=== PATIENT | female | born 1940 | race Caucasian/White ===

== ENCOUNTER 2018-05-11 06:02 | Observation (INO) | payer BC ==
[2018-05-08 17:10] VITALS: BMI 32.2
[2018-05-11] VITALS (28 sets, daily range): BP systolic 92–127; BP diastolic 53–82; PULSE 72–116; RESP 15–26; Ht 154.9 cm; Wt 77.1 kg
[~2018-05-11] VITALS: Ht 154.9 cm; Wt 77.1 kg
[~2018-05-11 06:02] MED LIST: ATOR20TA38 PO; FOLI-49 PO; MELO15TA30 PO; OLME20TA20 PO; POTA10TA15 PO
[2018-05-11] MEDS ORDERED: POLYMYXIN/BACITRACIN 1L IRRIG ONE (06:42)
[2018-05-11] MEDS ORDERED: BUPIVACAINE 0.5% (SDV) 30 ML INJ ONE (06:42)
[2018-05-11] MEDS ORDERED: ROPIVACAINE 0.5 % 30 ML VIAL ONE ×2 (06:48→07:22)
[2018-05-11] MEDS ORDERED: EPHEDrine SULFATE 50 MG/5 ML SYG ONE (07:00)
[2018-05-11] MEDS ORDERED: CLINDAMYCIN 900 MG/50 ML D5W IVPB IVPB ONE (07:00)
[2018-05-11] MEDS ORDERED: [UNRECOGNIZED DRUG - CODE] PO (07:10)
[2018-05-11] MEDS ORDERED: CHOL100062 PO (07:10)
--- NOTE | 2018-05-11 07:15 | PREAC ---
Date/Time of Note Date/Time of Note DATE: 05/11/18 TIME: 07:13 Anesthesia Eval and Record Evaluation Time Pre-Procedure Interview DATE: 05/11/18 TIME: 07:13 Age 78 Sex female NPO: 8 hrs Preoperative diagnosis Left Foot Pain s/p Hardware hallux Ridigius Planned procedure Left Foot joint arthrodesis with allograft Past Medical History Past Medical History: Includes Cardio: HTN, Dyslipidemia Musculoskeletal: Osteoarthritis Surgery & Anesthesia Issues No known issue Meds Anticoagulation: No Beta Danika within 24 hr: No Reason Beta Danika not given: Pt. not on B-Danika Reported Medications Indapamide* (Lozol*) 1.25 Mg Tab, 1.25 MG PO DAILY, TAB 05/11/18 Cholecalciferol* (Vitamin D3*) 1,000 Unit Tablet, 1000 UNIT PO DAILY, TAB 05/11/18 Potassium Chloride (Klor-Con M10) 10 Meq Tab.prt.sr, 10 MEQ PO 05/08/18 Atorvastatin Calcium* (Atorvastatin Calcium*) 20 Mg Tablet, 20 MG PO QHS, #30 TAB 05/08/18 Folic Acid* (Folic Acid*) 1 Mg Tablet, 1 MG PO DAILY, TAB 05/08/18 Olmesartan Medoxomil (Benicar) 20 Mg Tablet, 20 MG PO DAILY, #30 TAB 05/08/18 Meloxicam* (Mobic*) 15 Mg Tablet, 15 MG PO DAILY, #30 TAB 05/08/18 Meds reviewed: Yes Allergies Coded Allergies: Penicillins (Verified Allergy, Unknown, 05/11/18) Sulfa (Sulfonamide Antibiotics) (Verified Allergy, Unknown, 05/11/18) Allergies Reviewed: Yes Labs/Studies Labs Reviewed: Reviewed by anesthesiologist test: N/A Studies: ECG (n/a), CXR (n/a) Pre-procedure Exam Airway: Adequate mouth opening, Adequate thyromental dist Mallampati: Mallampati II Teeth: Normal Lung: Normal Heart: Normal ASA Physical Status ASA physical status: 2 Emergency: None Planned Anesthetic General/MAC: ETT Nerve block: Femoral (left), Sciatic (left) Planned Pain Management Parenteral pain med Pre-operative Attestations Prior to commencing anesthesia and surgery, the patient was re-evaluated, there was verification of: *The patient's identity *The results of appropriate recent lab work and preoperative vital signs *The above evaluation not changing prior to induction *Anesthetic plan, risk benefits, alternative and complications discussed with patient/family; questions answered; patient/family understands, accepts and wishes to proceed. MATTIE TIJERINA MD May 11, 2018 07:15
[2018-05-11] MEDS ORDERED: PROPOFOL 20 ML ONE (07:22)
[2018-05-11] MEDS ORDERED: ROCURONIUM 50 MG INJ ONE (07:22)
[2018-05-11] MEDS ORDERED: CEFAZOLIN 1 GM INJ ONE (07:22)
[2018-05-11] MEDS ORDERED: MIDAZOLAM 1 MG/ML 2 ML INJ ONE (07:22)
[2018-05-11] MEDS ORDERED: PHENYLephrine (100 MCG/ML) 5ML SYG ONE (08:01)
[2018-05-11] MEDS ORDERED: ONDANSETRON 4 MG INJ ONE (08:26)
[2018-05-11] MEDS ORDERED: DEXAMETHASONE 4 MG/ML 5 ML INJ ONE (08:26)
[2018-05-11] MEDS ORDERED: METOCLOPRAMIDE 10 MG INJ ONE (08:26)
[2018-05-11] MEDS ORDERED: KETOROLAC 30 MG INJ ONE (08:26)
[2018-05-11] MEDS ORDERED: HETASTARCH 6% NACL 500 ML ONE (09:21)
[2018-05-11] MEDS ORDERED: NEOMYC/POLYMYX/BACIT 30 GM OINT ONE (10:58)
[2018-05-11] MEDS ORDERED: GLYCOPYRROLATE 0.4 MG INJ ONE (11:08)
[2018-05-11] MEDS ORDERED: NEOSTIGMINE 3 MG/3 ML SYRINGE ONE (11:08)
--- NOTE | 2018-05-11 11:26 | NUR ---
PACU FROM OR ON O2 MASK AROUSABLE VS STABLE NO RESO DISTRESS LT FOOT DSSG DRY INTACT LT HAND WITH 20 LE SITE CLEAR
[2018-05-11] MEDS ORDERED: DIPHENHYDRAMINE 50 MG INJ IV PRN (11:30)
[2018-05-11] MEDS ORDERED: LABETALOL HCL 20MG INJ IV PRN (11:30)
[2018-05-11] MEDS ORDERED: HYDROmorphONE 1 MG/5 ML IV SYRINGE IV PRN ×3 (11:30)
[2018-05-11] MEDS ORDERED: EPHEDrine SULFATE 50 MG/5 ML SYG IV PRN (11:30)
[2018-05-11] MEDS ORDERED: ONDANSETRON 4 MG INJ IV PRN ×2 (11:30→12:00)
[2018-05-11] MEDS ORDERED: hydrALAzine 20 MG INJ IV PRN (11:30)
[2018-05-11] MEDS ORDERED: OXYCODONE/ACETAMINOPHEN (5/325) TAB PO PRN ×2 (11:30)
[2018-05-11] MEDS ORDERED: FENTAnyl 50 MCG/ML VIAL IV PRN ×3 (11:30)
[2018-05-11] MEDS ORDERED: MEPERIDINE 25 MG INJ IV PRN (11:30)
[2018-05-11] MEDS ORDERED: METOCLOPRAMIDE 10 MG INJ IV PRN (11:30)
--- NOTE | 2018-05-11 11:51 | PAC ---
Date/Time of Note Date/Time of Note DATE: 05/11/18 TIME: 11:50 Post-Anesthesia Notes Post-Anesthesia Note Last documented vital signs T: 98.8 Activity: WNL Respiratory function: WNL Cardiovascular function: WNL Mental status: Baseline Pain reasonably controlled: Yes Hydration appropriate: Yes Nausea/Vomiting absent: Yes MATTIE TIJERINA MD May 11, 2018 11:51
--- NOTE | 2018-05-11 11:52 | HPN ---
Date/Time of Note Date/Time of Note DATE: 05/11/18 TIME: 06:52 Interval H&P Admission Note Pt. seen H&P reviewed: No system changes VINI TAVERAS MD May 11, 2018 11:52
[2018-05-11] MEDS ORDERED: ACETAMINOPHEN 325 MG TAB PO PRN (12:00)
[2018-05-11] MEDS ORDERED: DIPHENHYDRAMINE 25 MG CAP PO PRN (12:00)
[2018-05-11] MEDS ORDERED: HYDROmorphONE 1 MG/ML SYG IV PRN (12:00)
--- NOTE | 2018-05-11 12:00 | OPR ---
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 Left foot 2nd metatarsal over load Left foot 2nd MTPJ varus deformity Left foot 2nd and 3rd Metatarsal angular deformity Postoperative Diagnosis Left foot painful hardware Left foot failed silastic implant to the 1st MTP Joint Left foot 2nd metatarsal over load Left foot 2nd MTPJ varus deformity Left foot 2nd and 3rd Metatarsal angular deformity Left foot cockup deformity of the first toe Operation/Procedure Performed Left foot hardware removal Left foot first metatarsal phalangeal joint arthrodesis with calcaneal autograft and allograft Left foot extensor hallucis longus lengthening and tenodesis Left foot second metatarsal phalangeal joint and third metatarsal phalangeal joint correction of angular deformity Left foot second metatarsal Ronda shortening osteotomy Left foot second metatarsal phalangeal joint lateral joint capsular repair Surgeon Vini Taveras MD Food Critic Karol Botello MD Anesthesia Type: general, other (Popliteal block) Anesthesiologist: MATTIE TIJERINA MD Estimated Blood Loss: 10 - 50 ml's Transfusion none Specimen Silastic implant and synovitis from the first metatarsophalangeal joint Grafts/Implants [employer] first metatarsal phalangeal joint arthrodesis plate and screws [employer] augment with AlloMatrix [employer] amnion [employer] 12 snap off screw [employer] 0.062 mm K wire to the second metatarsal phalangeal joint and 0.045 mm K wire to the third metatarsal joint with associated Jurgan balls Grayson first metatarsal head allograft Complications none Pt Condition Post Procedure: stable Disposition: PACU Indications Patient is a 78-year-old female who is status post a Silastic implant placed by an outside visit patient several years ago with ongoing pain and deformity over her first toe with a cockup deformity of her first toe and pain over her first metatarsal pharyngeal joint as well as second and third metatarsophalangeal joints. There is also across under deformity of her second and third toes. Patient is indicated for surgery due to these ongoing complaints. Risk Note: Patient was explained the risks and benefits of surgery and the patient's [place] language including not limited to infection, bleeding, injury to blood vessels, nerves, ligaments or tendons. Risks of anesthesia, deep vein thrombosis and need for reduce future surgery. Patient acknowledged these risk by signing the surgical consent form. Procedure Description The patient's operative limb was marked in the preoperative holding area, confirmed with both patient and consent. The patient was brought back to the operative theater and placed on the operative table after peripheral nerve block was given. The patient had ipsilateral hip bump placed and a tourniquet was placed nonsterilely to the operative extremity. General anesthesia was given and the patient was prepped and draped in the normal sterile fashion. Timeout was taken. All parties in the room agreed on the correct patient, correct extremity, correct operative procedure. Tourniquet was brought up to 250 mm Hg. Incision was made over the previous incision and extending it both distally to the IP joint as well as proximally of the first MTPJ. At this point, the extensor hallucis longus was lengthened with a Z lengthening and then dissection was taken down to the proximal and distal metatarsal silastic implant which was removed successfully without any complication. There was extensive synovitis which was also debrided and sent for pathology. Incision was then made over the MP joint with extensive s ynovitis noted and the metatarsal head joint surface also had significant erosions. At this point, I decided that as opposed to doing the typical cup and cone reaming system, we would debride the joint with a curette to create some spot welds and then with a pecking approach using a 2.0 K wire to achieve better blood flow since there was already significant shortening of the joint, specifically at the proximal phalanx. The head was then pecked and the cartilaginous surface and the proximal phalanx was also debridement and pecking approach was also debrided with a K wire. At this point, using an Acumed calcaneal bone harvester, autograft was removed from the lateral aspect of the calcaneus successfully without any complication. Then using a size 5 trial, a Grayson size 19x5 length restoring first MTP head allograft was chosen. The proximal phalanx and metatarsal shaft were then packed with both autograft and allograft. The Grayson metatarsal head allograft was then packed on the undersurface with AlloMatrix mixed with augmented. The allograft metatarsal head was then placed successfully into the joint to obtain further length. The joint was then appropriately viewed under fluoroscopy, showing that we achieved appropriate length and alignment and the joint was initially fixed with a K wire in an oblique fashion. A [employer] medium 0 degree dorsiflexion plate was then placed dorsally and then fixed initially with kwires. A flat plate was confirmed showing that there was no evidence of any extensive dorsiflexion and the toe was at the plate with dorsiflexion of the ankle. Plate was fixed distally first and locked. Then a compression screw that was partially that it was placed from proximal medial to distal lateral. The plate was then fixated and compressed distally and then locked distally as well. More augment and allograft was then placed at the fusion site to ensure adequate arthrodesis healing. A flat plate was confirmed showing that there was no evidence of any extensive dorsiflexion and the toe was at the plate with dorsiflexion of the ankle. The joint was shown to be well reduced and compressed under fluoroscopy in both the AP, oblique and lateral position and the remaining screws were then placed. The extensor hallucis longus was then lengthened and repaired with a 3-0 PDS suture and then the wound was irrigated thoroughly. Tourniquet was brought down hemostasis was achieved. Amniotic membrane was placed over the dorsal surface of the foot. The wound was then closed with a 3-0 Monocryl followed by a 4-0 nylon in a vertical mattress fashion. The lateral calcaneal wound was also irrigated thoroughly and closed with a 4-0 nylon in vertical mattress fashion. Attention was then turned to the second webspace where incision was made over th e second and third metatarsal heads. Care was taken to avoid any injury to the surrounding neurovascular structures. The second metatarsal head with identified and a shortening osteotomy was then performed and the metatarsal was slightly shortened by approximately 1 mm and then fixated with a snap off screw. The dorsal of the medical head was then chamfered and rongeured appropriately. The wound was irrigated thoroughly. The lateral joint ligamentous capsule was then secured with a 3-0 PDS and repaired appropriately. The wound was then closed with a 3-0 Monocryl and an amniotic membrane was placed over the soft tissue and then the skin was closed with a 5-0 nylon in a vertical mattress fashion. The wound was then dressed with Xeroform, 4x4s, ABDs, and placed in a short-leg splint and the patient brought to the PACU in a stable condition. All sponge and needle counts were correct. [employer]ICAL SERGEANT NOTE: The use of an salon assistant surgeon was necessary for the success of this case. Food Critic orthopedic surgeon was needed to hold the foot in proper position for adequate fixation and reduction of the first second and third metatarsal phalangeal joint. Without an orthopedic surgical oncologist, the case would have been substantially more complicated and longer And thus should be compensated accordingly. MODIFIER 22 NOTE: This case should be reimbursed with a modifier 22 due to the significant complexity of this case, given that it was a revision on the previous surgeries on this foot and that it was a length restoring revision, thus making the anatomy more complicated and the surgery more difficult and significantly longer and thus should be compensated accordingly. Copies To: CC: KAROL BOTELLO MD ; VINI TAVERAS MD May 11, 2018 12:00
--- NOTE | 2018-05-11 12:25 | NUR ---
PACU PT AWAKE ALERT ROOM AIR NO C/O PAIN NO RESP DISTRESS VS STABLELT FOOT WITH DSSG AND PLASTER LT HAND WITH [address] BLANCO VISITED THE PATIENT REPORT GIVEN TO NEELAM VALLADARES
--- NOTE | 2018-05-11 12:41 | PN ---
Date/Time of Note Date/Time of Note DATE: 05/11/18 TIME: 12:31 Assessment/Plan VTE Prophylaxis Risk score (from Nsg)>0 risk: 8 SCD applied (from Nsg): Yes Pharmacological prophylaxis: rivaroxaban Lines/Catheters IV Catheter Type (from Nrsg): Peripheral IV Subjective 24 Hr Interval Summary Free Text/Dictation thank you dr steve for asking me to see this 78 yr old woman seen in the recovery room. she is posty odp left foot surgery as noted. she had local anesthesia and sedation but is awaked and alerrt. foot in splint, elevated. usual md dis dr Dima Lopez, rich nd p from him is in chart and reviewed. current problems hypertension, hyperlipidemia, arthritis. historyog hip rep;lacement and dneck surgery she is allergic to penicillin and artificial sugar. nbon smokerd on exam alert, vs ok as notedd [place] in place lungs clear, hr regular, abd soft. left foot elevated and wrapped. plan:we will follow with you in hospital. she has had surgery on the Exam/Review of Systems Exam Vitals Vital Signs Date Temp Pulse Resp B/P (MAP) Pulse Ox O2 O2 Flow FiO2 Time Delivery Rate 05/11/18 98.8 11:37 05/11/18 116 102/73 98 High Flow 8.0 11:26 (83) Mask 05/11/18 18 07:15 Medications Medication Current Medications Hydromorphone HCl (Dilaudid) 0.2 mg PACU PRN IV MILD PAIN 1-3; Start 05/11/18 at 11:30; Stop 05/11/18 at 15:30 Hydromorphone HCl (Dilaudid) 0.4 mg PACU PRN IV MOD PAIN 4-6; Start 05/11/18 at 11:30; Stop 05/11/18 at 15:30 Hydromorphone HCl (Dilaudid) 0.6 mg PACU PRN IV SEVERE PAIN 7-10; Start 05/11/18 at 11:30; Stop 05/11/18 at 15:30 Fentanyl (Sublimaze) 25 mcg PACU ORDER PRN IV MILD PAIN 1-3; Start 05/11/18 at 11:30; Stop 05/11/18 at 15:30 Fentanyl (Sublimaze) 50 mcg PACU ORDER PRN IV MOD PAIN 4-6; Start 05/11/18 at 11:30; Stop 05/11/18 at 15:30 Fentanyl (Sublimaze) 75 mcg PACU ORDER PRN IV SEVERE PAIN 7-10; Start 05/11/18 at 11:30; Stop 05/11/18 at 15:30 Oxycodone/ Acetaminophen (Percocet (5/ 325)) 1 tab PACU ORDER PRN PO .PAIN 1-5; Start 05/11/18 at 11:30; Stop 05/11/18 at 15:30 Oxycodone/ Acetaminophen (Percocet (5/ 325)) 2 tab PACU ORDER PRN PO .PAIN 6-10; Start 05/11/18 at 11:30; Stop 05/11/18 at 15:30 Ondansetron HCl (Zofran Inj) 4 mg PACU ORDER PRN IV NAUSEA/VOMITING; Start 05/11/18 at 11:30; Stop 05/11/18 at 15:30 Metoclopramide HCl (Reglan) 10 mg PACU ORDER PRN IV NAUSEA/VOMITING; Start 05/11/18 at 11:30; Stop 05/11/18 at 15:30 Labetalol HCl (Labetalol) 5 mg PACU ORDER PRN IV HIGH BLOOD PRESSURE; Start 05/11/18 at 11:30; Stop 05/11/18 at 15:30 Hydralazine HCl (Apresoline) 5 mg PACU ORDER PRN IV HIGH BLOOD PRESSURE; Start 05/11/18 at 11:30; Stop 05/11/18 at 15:30 Ephedrine Sulfate 5 mg PACU ORDER PRN IV BLOOD PRESSURE SUPPORT; Start 05/11/18 at 11:30; Stop 05/11/18 at 15:30 Meperidine HCl (Demerol) 25 mg PACU ORDER PRN IV .RIGORS; Start 05/11/18 at 11:30; Stop 05/11/18 at 15:30 Diphenhydramine HCl (Benadryl) 25 mg PACU ORDER PRN IV .PRURITUS; Start 05/11/18 at 11:30; Stop 05/11/18 at 15:30 Vancomycin HCl 100 ml @ 100 mls/hr Q12H IVPB ; Start 05/11/18 at 12:00; Stop 05/12/18 at 00:59; Status UNV Ondansetron HCl (Zofran Inj) 4 mg Q4H PRN IV NAUSEA AND/OR VOMITING; Start 05/11/18 at 12:00; Status UNV Diphenhydramine HCl (Benadryl) 25 mg Q4H PRN PO ITCHING; Start 05/11/18 at 12:00; Status UNV Rivaroxaban (Xarelto) 10 mg WITH DINNER PO ; Start 05/12/18 at 17:55; Status UNV Oxycodone HCl (Roxicodone) 5 mg Q4H PRN PO MODERATE PAIN LEVEL 4-6; Start 05/11/18 at 12:00; Status UNV Acetaminophen (Tylenol Tab) 325 mg Q4H PRN PO MILD PAIN(1-3)OR ELEVATED TEMP; Start 05/11/18 at 12:00; Status UNV Hydromorphone HCl (Dilaudid) 1 mg Q3H PRN IV SEVERE PAIN LEVEL 7-10; Start 05/11/18 at 12:00; Status UNV Gabapentin (Neurontin) 300 mg TID PO ; Start 05/11/18 at 13:00; Status UNV YOBANI BLANCO MD May 11, 2018 12:41
[2018-05-11] MEDS: VANCOMYCIN 500 MG (PMX) 100 ML IVPB SCH (13:50)
[2018-05-11] MEDS: GABAPENTIN 300 MG CAP PO SCH ×2 (14:45→20:53)
--- NOTE | 2018-05-11 18:25 | NUR ---
EOSS: Dressing c/d/i. Plaster with taras wrap on it visible. Pins visible on toes. Dried blood visible on big toe. Toes visible, cap refill <3 secs. Pt reports no sensation to toes. Sensation present on R foot and sensation of L leg begins directly below L knee, where plaster cast ends. No fevers; no pain/nausea. Pt reports sore throat. Pt educated on proper use of incentive spirometer; able to reach 1375; will continue to encourage. Pt on O2 at 2L and satting >95%. Pt tachycardic, ranging between 92-110, fluids encouraged. Pt nonsymptomatic. Pt oriented to unit. Call light within reach and bed alarm on. SCDs on.
[2018-05-11] MEDS: ATORVASTATIN 20 MG TAB PO SCH (20:53)
[2018-05-12] MEDS: VANCOMYCIN 500 MG (PMX) 100 ML IVPB SCH (02:28)
[2018-05-12 03:15] VITALS: BP 98/58; PULSE 81; RESP 16
[2018-05-12] MEDS: POTASSIUM CHLORIDE (SR) 10 MEQ TAB PO SCH (07:18)
[2018-05-12 08:39] VITALS: BP 90/57; PULSE 73; RESP 18
[2018-05-12] MEDS: LOSARTAN 50 MG TAB PO SCH (09:00)
[2018-05-12] MEDS: CHOLECALCIFEROL 1,000 UNIT TAB PO SCH (09:08)
[2018-05-12] MEDS: FOLIC ACID 1 MG TAB PO SCH (09:08)
[2018-05-12] MEDS: GABAPENTIN 300 MG CAP PO SCH (09:08)
--- NOTE | 2018-05-12 10:15 | NUR ---
PT EVALUATION NOTE: Therapy day number 1 Evaluation Start Time 09:20 Evaluation End Time 10:15 Evaluation Total Time 55 min Subjective Denies pain Pain Scale NUMERIC Pain Intensity 0 (0-10) Patient Stated Goal for Pain Relief 0 (0-10) Pain Level Comment denies pain Pre Treatment Vital Signs Stable Yes - BP 98/60, HR 83, O2 sat 97% on O2 via NC @ 1 l/min Supine to Sit Stand by Assist Transfer Sit to Stand Ability Contact Guard Assist Bed Mobility Sit to Supine Stand by Assist Bed Transfer Ability Contact Guard Assist Chair Transfer Ability Contact Guard Assist Toileting Ability Contact Guard Assist Sitting Tolerance 10 min Additional Mobility Comments transfers with FWW NWB LLE Gait Assist Levels Contact Guard Assist Assistive Devices Front Wheel Walker Ambulation Distance 5 feet Additional Gait Comments NWB LLE Weight Bearing Assessment Label Left Lower Extremity Weight Bearing Status Non Weight Bearing Static Sitting Balance Good Dynamic Sitting Balance Good Standing Static Balance Fair Dynamic Standing Balance Fair Additional Balance Assessments Comments standing balance with FWW NWB LLE Safety Judgement Good Activity Tolerance Good Post Treatment Pain Intensity 0 0-10 Total Minutes 55 Total Units 4 PT Technical Record Comment Patient is a 78 year old female who underwent L foot hardware removal and joint arthrodesis with allograft on 05/11/18. PMH: HTN, dyslipidemia, OA, L THR PRECAUTIONS: NWB LLE PLOF: Patient lives with her handicapped spouse in a two story house with a ramp to enter the house. The patient and her spouse, who is confined to a wheelchair, live on the first floor of the house. Prior to hospitalization patient was independent with all functional mobility without an assistive device. CLOF: Helene VALLADARES cleared patient for PT evaluation. Patient agreeable to participate with PT evaluation, denies pain. Received patient in semifowlers position in bed, LLE elevated in splint, BP 98/60, HR 83, O2 sat 97% on O2 via NC @ 1 l/min. Patient educated in safety awareness, fall prevention, NWB LLE status and purpose of PT evaluation. Patient able to come to sitting position at the EOB with SBA. Sitting BP 98/57, HR 90, O2 sat 96% on O2 via NC @ 1 l/min. Sit to stand with FWW and CGA NWB LLE. Patient able to ambulate 5 ft from the bed to the bedside commode with the FWW and CGA NWB LLE and transferred to the bedside commode. Sit to stand from the bedside commode with the FWW and CGA NWB LLE. Patient ambulated an additional 5 feet from the bedside commode to the bed with FWW and CGA NWB LLE. Patient returned to bed with SBA, repositioned for comfort, all needs met, call light within reach. Helene VALLADARES notified of patient's status at the end of the session. Patient cleared to transfer to bedside commode with FWW and nursing assistance. PT RECOMMENDATIONS: Patient presents with impaired functional mobility s/p L foot surgery with NWB status LLE. Patient will benefit from skilled inpatient PT intervention to increase safety and independence with bed mobility, transfers and ambulation with NWB LLE compliance. Anticipate discharge home once cleared by MD. Patient has arranged for a caregiver to assist her and her after she is discharged. Patient appears to have necessary equipment at home including FWW, scooter, wheelchair and bedside commode.
--- NOTE | 2018-05-12 13:09 | PN ---
Date/Time of Note Date/Time of Note DATE: 05/12/18 TIME: 13:09 Assessment/Plan Lines/Catheters IV Catheter Type (from Nrsg): Saline Lock Olivier in Place (from Nrsg): No Assessment/Plan Assessment/Plan POD#1 s/p Left foot hardware removal Left foot first metatarsal phalangeal joint arthrodesis with calcaneal autograft and allograft Left foot extensor hallucis longus lengthening and tenodesis Left foot second metatarsal phalangeal joint and third metatarsal phalangeal joint correction of angular deformity Left foot second metatarsal Ronda shortening osteotomy Left foot second metatarsal phalangeal joint lateral joint capsular repair -- NWB to the LLE - PT to GT -speech therapist consult pending - PO and IV pain meds - Xarelto for DVT prophx -- Jake Taveras MD Subjective 24 Hr Interval Summary Pain is high right now and patient is sleepy. Complaining of pain and difficulty swallowing Exam/Review of Systems Vital Signs Vitals Vital Signs Date Temp Pulse Resp B/P (MAP) Pulse Ox O2 O2 Flow FiO2 Time Delivery Rate 05/13/18 97.7 73 19 136/83 98 08:04 (100) 05/13/18 Nasal 2.0 07:40 Cannula Intake and Output 05/12/18 05/12/18 05/13/18 1414:59 22:59 06:59 IntakeIntake Total 840 ml 560 ml 450 ml OutputOutput Total 150 ml BalanceBalance 840 ml 410 ml 450 ml Exam Musculoskeletal: other (LLE/ Splint intact, pins intact to toes with cr brisk and warm and well perfused) Results Result Diagram: 05/12/18 0439 05/12/18 0439 VINI TAVERAS MD May 12, 2018 13:09
--- NOTE | 2018-05-12 13:20 | NUR ---
PT NOTE: Therapy day number 1 Subjective Denies pain Pain Scale NUMERIC Pain Intensity 0 (0-10) Patient Stated Goal for Pain Relief 0 (0-10) Pain Level Comment denies pain Pre Treatment Vital Signs Stable Yes Transfer Training Start Time 12:50 Supine to Sit Stand by Assist Transfer Sit to Stand Ability Contact Guard Assist Bed Mobility Sit to Supine Stand by Assist Sitting Tolerance 10 min Additional Mobility Comments transfers with FWW NWB LLE Transfer Training End Time 13:05 Total Transfer Training Time 15 min (8-127) Gait Training Start Time 13:05 Gait Assist Levels Contact Guard Assist Assistive Devices Front Wheel Walker Ambulation Distance 20 feet Additional Gait Comments NWB LLE, slow peña, able to manage FWW without assistance Gait Training End Time 13:20 Total Gait Training Treatment Time 15 min (8-127) Weight Bearing Assessment Label Left Lower Extremity Weight Bearing Status Non Weight Bearing Static Sitting Balance Good Dynamic Sitting Balance Good Standing Static Balance Fair Dynamic Standing Balance Fair Additional Balance Assessments Comments standing with FWW NWB LLE Safety Judgement Good Activity Tolerance Good Post Treatment Pain Intensity 0 0-10 Total Treament Time 30 min (8-127) Total Minutes 30 Total Units 2 PT Technical Record Comment S: Helene VALLADARES cleared patient for PT treatment. Patient agreeable to participate with PT treatment, denies pain. O: Received patient in semifowlers position in bed, LLE elevated in splint, patient on supplemental O2 via NC @ 2 l/min. RN reports that patient was desaturating with O2 @ 1 l/min. Patient able to come to sitting position at the EOB with SBA. Sit to stand with FWW and CGA NWB LLE. Gait training x 20 ft with the FWW and CGA NWB LLE. Patient ambulates with slow peña, able to manage FWW without physical assistance and able to maintain NWB LLE status. O2 sat >95% throughout session with patient on O2 via NC @ 2 l/min.Patient returned to bed with SBA, repositioned for comfort, all needs met, call light within reach, bed alarm activated. Helene VALLADARES notified of patient's status at the end of the session. Patient cleared to transfer to bedside commode with FWW and nursing assistance. A: Patient progressing with ambulation, increased ambulation distance. Able to maintain NWB LLE status with transfers and ambulation. P: Continue with POC.
[2018-05-12] MEDS ORDERED: GABAPENTIN 100 MG CAP PO PRN (13:30)
[2018-05-12] MEDS ORDERED: ASCORBIC ACID 500 MG TAB.CHEW PO SCH (13:30)
--- NOTE | 2018-05-12 14:48 | NUR ---
Bedside swallow evaluation completed: Pt is a 78 y/o female post op left foot surgery (05/11). She had local anesthesia and sedation but is awaked and alert. Her foot is in splint, and elevated. Med hx is significant for: hypertension, hyperlipidemia, and arthritis. Hx medical procedures include hip replacement and neck surgery. She is alert and oriented in bed. Family at bedside. She is on a regular diet, which is her baseline, however she was referred to ST as she is reporting food is getting caught when she tries to swallow. Oral [facility] exam: Unremarkable. Natural dentition in place. Face is symmetrical, with tongue at midline. Mild reduced hyolaryngeal excursion, per palpation. Pt is reporting significant discomfort starting at her hard palate and continuing bilaterally down her pharynx since her sx yesterday. She reports it feels very swollen. Trials: Thin liquids via cup and straw, pureed solids, soft ground solids Prolonged bolus hold and time required to initiate a/p transit, likely impacted by fear/ discomfort. Adequate bolus containment within oral cavity was observed. Initiation of pharyngeal swallow appears timely. Repeat swallows noted on all consistencies. Suspect red. pharyngeal constriction resulting in pharyngeal residue. Pt localizes residue to the level of the vallecula with soft ground solids only. Does not complain of residue with other consistencies. Demonstrated coughing x1 with ground chicken (1/3 bites) and x1 with consecutive straw sips thin liquids (1/1 trial). Tolerated all other trials without s/s aspiration, which included: 8 oz thin water by cup / single straw sips, 4 oz puree (between apple sauce, pudding and mashed potatoes), 4 bites ground broccoli. Provided verbal education to pt and family regarding dysphagia, diet modification options, safe swallow strategies, recovery timeline, POC, ST and goals. Verbalized comprehension and agreement to pureed diet with thin liquids. Recommendations: Pureed solids/ thin liquids Meds crushed in puree Single sips only Alt. solids / liquids Aspiration precautions/ oral care guidelines ST to f/u Addendum: 05/12/18 at [address] Amended: Links added.
[2018-05-12 15:03] VITALS: BP 104/60; PULSE 73; RESP 18
[2018-05-12] MEDS: ASCORBIC ACID 500 MG TAB PO SCH (16:39)
--- NOTE | 2018-05-12 17:18 | NUR ---
Endorsement: Dressing c/d/i. Plaster with taras wrap on it visible. Pins visible on toes. Dried blood visible on big toe. Toes visible, cap refill <3 secs. Pt reports sensation returning to toes. No fevers; no pain/nausea. Pt reports sore throat. Pt educated on proper use of incentive spirometer; able to reach 1375; will continue to encourage. Pt on O2 at 2L and satting >95%. BP improved from AM, BP 100's systolic, fluids encouraged. Pt nonsymptomatic. Pt reporting pain in throat and difficulty swallowing. Speech therapy consult requested. See ST note. Pureed food and thin liquids recommended. Pt oriented to unit. Call light within reach and bed alarm on. SCDs on. Addendum: 05/12/18 at 1735 by NEELAM LANGE RN Report given to Twyla for continuity of care.
[2018-05-12] MEDS ORDERED: CEPASTAT LOZENGE MT PRN (17:30)
--- NOTE | 2018-05-12 17:30 | NUR ---
ENDORSEMENT: ASSUMED PATIENT CARE, REPORT RECEIVED FROM NEELAM VALLADARES, BEDSIDE SHIFT REPORT GIVEN, WILL CONTINUE TO MONITOR.
[2018-05-12] MEDS: RIVAROXABAN 10 MG TABLET PO SCH (18:35)
[2018-05-12 19:56] VITALS: BP 100/60; PULSE 88; RESP 18
[2018-05-12] MEDS ORDERED: GABAPENTIN 300 MG CAP PO SCH (21:00)
[2018-05-12] MEDS: DOCUSATE SODIUM 100 MG CAP PO SCH (21:09)
[2018-05-12] MEDS: ATORVASTATIN 20 MG TAB PO SCH (21:09)
[2018-05-12] MEDS: oxyCODONE 5 MG TAB PO PRN (22:50)
--- NOTE | 2018-05-12 22:53 | NUR ---
Patient was c/o tightness of bandage on the L ankle area. Bandage was changed with less pressure.
--- NOTE | 2018-05-13 06:17 | NUR ---
Patient alert, oriented x4, slept good during the night, VS were stable, once was given pain medication. Urination good.
[2018-05-13 08:04] VITALS: BP 136/83; PULSE 73; RESP 19
--- NOTE | 2018-05-13 08:48 | PN ---
Date/Time of Note Date/Time of Note DATE: 05/13/18 TIME: 08:45 Assessment/Plan VTE Prophylaxis Risk score (from Ns)>0 risk: 3 SCD applied (from Ns): Yes Pharmacological prophylaxis: rivaroxaban Lines/Catheters IV Catheter Type (from Nrsg): Saline Lock Urinary Cath still in place: No Assessment/Plan Result Diagram: 05/12/189 05/12/189 Subjective 24 Hr Interval Summary Free Text/Dictation second post op day, left foot surgery. did get up with p.t. has knee scooter at home. cast loosened last pm vs are ok, voiding ok issue is post pharynx pain and trouble swallowing regular food, doing fine with puree and says some better this am. no trauma noted on oral inspection, no neck fullness. assume post intubation, if so should be better in next 24 hours. alert, lungs clear, labs ok continue with p.t. and mobilization ENT: dysphagia Musculoskeletal: bone/joint pain Exam/Review of Systems Exam Vitals Vital Signs Date Temp Pulse Resp B/P (MAP) Pulse Ox O2 O2 Flow FiO2 Time Delivery Rate 05/13/18 97.7 73 19 136/83 98 08:04 (100) 05/12/18 Nasal 2.0 21:42 Cannula Intake and Output 05/12/18 05/12/18 05/13/18 1515:00 23:00 07:00 IntakeIntake Total 840 ml 560 ml 450 ml OutputOutput Total 150 ml BalanceBalance 840 ml 410 ml 450 ml Medications Medication Current Medications Ondansetron HCl (Zofran Inj) 4 mg Q4H PRN IV NAUSEA AND/OR VOMITING; Start 05/11/18 at 12:00 Diphenhydramine HCl (Benadryl) 25 mg Q4H PRN PO ITCHING; Start 05/11/18 at 12:00 Rivaroxaban (Xarelto) 10 mg WITH DINNER PO Last administered on 05/12/18at 18:35; Admin Dose 10 MG; Start 05/12/18 at 17:55 Oxycodone HCl (Roxicodone) 5 mg Q4H PRN PO MODERATE PAIN LEVEL 4-6 Last administered on 05/12/18at 22:50; Admin Dose 5 MG; Start 05/11/18 at 12:00 Acetaminophen (Tylenol Tab) 325 mg Q4H PRN PO MILD PAIN(1-3)OR ELEVATED TEMP; Start 05/11/18 at 12:00 Hydromorphone HCl (Dilaudid) 1 mg Q3H PRN IV SEVERE PAIN LEVEL 7-10; Start 05/11/18 at 12:00 Atorvastatin Calcium (Lipitor) 20 mg QHS PO Last administered on 05/12/18at 21:09; Admin Dose 20 MG; Start 05/11/18 at 21:00 Cholecalciferol (Vitamin D) 1,000 unit DAILY PO Last administered on 05/12/18at 09:08; Admin Dose 1,000 UNIT; Start 05/12/18 at 09:00 Folic Acid (Folic Acid) 1 mg DAILY PO Last administered on 05/12/18at 09:08; Admin Dose 1 MG; Start 05/12/18 at 09:00 Potassium Chloride (Klor-Con 10) 10 meq BEFORE BREAKFAST PO Last administered on 05/12/18at 07:18; Admin Dose 10 MEQ; Start 05/12/18 at 07:00 Losartan Potassium (Cozaar) 100 mg DAILY PO ; Start 05/12/18 at 09:00 Gabapentin (Neurontin) 100 mg TID PRN PO PAIN LEVEL 7-10; Start 05/12/18 at 13:30 Cholecalciferol (Vitamin D) 5,000 unit DAILY PO ; Start 05/13/18 at 09:00 Ascorbic Acid (Vitamin C) 1,000 mg DAILY PO Last administered on 05/12/18at 16:39; Admin Dose 1,000 MG; Start 05/12/18 at 16:15 Phenol (Cepastat Lozenge) 1 lozenge Q1H PRN MT sore throat; Start 05/12/18 at 17:30 Docusate Sodium (Colace) 100 mg BID PO Last administered on 05/12/18at 21:09; Admin Dose 100 MG; Start 05/12/18 at 21:00 YOBANI BLANCO MD May 13, 2018 08:48
[2018-05-13] MEDS: DOCUSATE SODIUM 100 MG CAP PO SCH ×2 (08:56→20:30)
[2018-05-13] MEDS: FOLIC ACID 1 MG TAB PO SCH (08:56)
[2018-05-13] MEDS: ASCORBIC ACID 500 MG TAB PO SCH (08:57)
[2018-05-13] MEDS: CHOLECALCIFEROL 1,000 UNIT TAB PO SCH ×2 (08:57→14:06)
[2018-05-13] MEDS: LOSARTAN 50 MG TAB PO SCH (08:57)
[2018-05-13] MEDS: POTASSIUM CHLORIDE (SR) 10 MEQ TAB PO SCH (08:58)
--- NOTE | 2018-05-13 11:46 | NUR ---
PT NOTE Therapy day number 2 Subjective Denies pain Pain Scale NUMERIC Pain Intensity 0 (0-10) Patient Stated Goal for Pain Relief 0 (0-10) Pain Level Comment DENIES PAIN AT REST Transfer Training Start Time 11:46 Transfer Sit to Stand Ability Stand by Assist Bed Transfer Ability Stand by Assist Additional Mobility Comments transfers with FWW NWB LLE, LEFT IN CHAIR POST TX Transfer Training End Time 12:00 Total Transfer Training Time 14 min (8-127) Gait Training Start Time 12:00 Gait Assist Levels Contact Guard Assist Assistive Devices Front Wheel Walker Ambulation Distance 5 feet Additional Gait Comments 5 x 5 NWB LLE, slow peña, able to manage FWW without assistance Gait Training End Time 12:12 Total Gait Training Treatment Time 12 min (8-127) Weight Bearing Assessment Label Left Lower Extremity Weight Bearing Status Non Weight Bearing Static Sitting Balance Good Dynamic Sitting Balance Good Standing Static Balance Fair Dynamic Standing Balance Fair Additional Balance Assessments Comments standing with FWW NWB LLE Safety Judgement Good Activity Tolerance Fair Post Treatment Pain Intensity 2 0-10 Quality Indicators Light headedness Variance Documentation SEE BELOW AND PT NOTE Total Treament Time 26 min (8-127) Total Minutes 26 Total Units 2 PT Technical Record Comment PT NOTE S: Pt stated, "I needed to use the commode." Agreeable for PT and cleared per JACQUELYN Martin. O: Received pt sitting on BSC w/family present in room. Applied gait belt. STS to FWW by pushing off (B) arm rests SBA. Gait training performed w/FWW 5'x 5 CGA/SBA. Noted hop to gait, slow peña, and able to maintain NWB LLE. Pt reported BUE fatigue/weakness and requested to go back to room. Pt sat and left in chair w/family at chairside. Left pt in comfort position, call light/phone within reach, and all needs met. JACQUELYN Martin informed of pt's status and location. A: Fair tolerance to tx. Transfers improved compared to previous tx. Pt was educated w/breathing exercises for energy conservation. Limited gait due to fatigue, however gait distance improved compared to previous tx. P: Continue POC and progress as tolerated.
--- NOTE | 2018-05-13 14:23 | NUR ---
PT NOTE: Attempted to see patient for p.m. PT treatment. Patient declining to participate at this time, c/o fatigue, had been up in chair earlier and wants to rest now. Patient's request respected, Veronica VALLADARES notified. Will follow up tomorrow in a.m.
[2018-05-13] MEDS: RIVAROXABAN 10 MG TABLET PO SCH (17:50)
--- NOTE | 2018-05-13 19:04 | NUR ---
RN NOTES PT IS STABLE, VS WITHIN NORMAL LIMITS, NO C/O PAIN, SENSATION IS PRESENT TO LT TOES, PT IS ON PUREED DIET AND THIN LIQUIDS, NO COMPLAINS OF DIFFICULTY SWALLOWING BUT STILL C/O SOME SORE THROAT, PAGED SPEECH THERAPIST FOR EVALUATION BUT NO RESPONSE. CALL LIGHT WITHIN REACH, ENCOURAGED PT TO CALL FOR ASSISTANCE.
[2018-05-13 20:30] VITALS: BP 132/83; PULSE 98; RESP 18
[2018-05-13] MEDS: ATORVASTATIN 20 MG TAB PO SCH (20:30)
[2018-05-13] MEDS: oxyCODONE 5 MG TAB PO PRN (20:30)
--- NOTE | 2018-05-13 20:44 | PN ---
Date/Time of Note Date/Time of Note DATE: 05/13/18 TIME: 20:44 Assessment/Plan Lines/Catheters IV Catheter Type (from Nrsg): Saline Lock Olivier in Place (from Nrsg): No Assessment/Plan Assessment/Plan POD#2 s/p Left foot hardware removal Left foot first metatarsal phalangeal joint arthrodesis with calcaneal autograft and allograft Left foot extensor hallucis longus lengthening and tenodesis Left foot second metatarsal phalangeal joint and third metatarsal phalangeal joint correction of angular deformity Left foot second metatarsal Ronda shortening osteotomy Left foot second metatarsal phalangeal joint lateral joint capsular repair -- NWB to the LLE - PT to GT - Soft diet per speech therapist - likely able to go home tomorrow if cleared by PT and Speech therapy and ok with Dr Margot Proctor for DVT prophx -- Jake Taveras MD Subjective 24 Hr Interval Summary Feeling much better today. Denies any pain Exam/Review of Systems Vital Signs Vitals Vital Signs Date Temp Pulse Resp B/P (MAP) Pulse Ox O2 O2 Flow FiO2 Time Delivery Rate 05/13/18 97.7 73 19 136/83 98 08:04 (100) 05/13/18 Nasal 2.0 07:40 Cannula Intake and Output 05/12/18 05/12/18 05/13/18 1414:59 22:59 06:59 IntakeIntake Total 840 ml 560 ml 450 ml OutputOutput Total 150 ml BalanceBalance 840 ml 410 ml 450 ml Exam Musculoskeletal: other (LLE/ Splint intact, pins intact to toes with cr brisk and warm and well perfused) Results Result Diagram: 05/12/18 0439 05/12/18 0439 VINI TAVERAS MD May 13, 2018 20:44
[2018-05-14 02:30] VITALS: BP 127/81; PULSE 84; RESP 19
--- NOTE | 2018-05-14 06:11 | NUR ---
EOSS. NO ACUTE EVENTS OVERNIGHT. PT HEMODYNAMICALLY AND RESPIRATORY STABLE. VS WITHIN NORMAL LIMITS, DENIES PAIN. SENSATION IS PRESENT TO LT TOES, PT IS ON PUREED DIET AND THIN LIQUIDS, NO COMPLAINS OF DIFFICULTY SWALLOWING BUT STILL C/O SOME SORE THROAT. PT IS USING BSC PASSING GAS. CALL LIGHT WITHIN REACH, ENCOURAGED PT TO CALL FOR ASSISTANCE. CONTINUE PLAN OF CARE.
[2018-05-14] MEDS: POTASSIUM CHLORIDE (SR) 10 MEQ TAB PO SCH (06:41)
--- NOTE | 2018-05-14 07:48 | PN ---
Date/Time of Note Date/Time of Note DATE: 05/14/18 TIME: 07:48 Assessment/Plan Lines/Catheters IV Catheter Type (from Nrsg): Saline Lock Olivier in Place (from Nrsg): No Assessment/Plan Assessment/Plan POD#3 s/p Left foot hardware removal Left foot first metatarsal phalangeal joint arthrodesis with calcaneal autograft and allograft Left foot extensor hallucis longus lengthening and tenodesis Left foot second metatarsal phalangeal joint and third metatarsal phalangeal joint correction of angular deformity Left foot second metatarsal Ronda shortening osteotomy Left foot second metatarsal phalangeal joint lateral joint capsular repair -- NWB to the LLE - PT to GT - Soft diet per speech therapist to advance to regular diet today -DC home today - Xarelto for DVT prophx - FU with me in 1 week -- Jake Taveras MD Subjective 24 Hr Interval Summary Pain is very well controlled today with no f/c/n/v Constitutional: no complaints Exam/Review of Systems Vital Signs Vitals Vital Signs Date Temp Pulse Resp B/P (MAP) Pulse Ox O2 O2 Flow FiO2 Time Delivery Rate 05/14/18 99.1 93 18 151/80 92 Room Air 08:14 (103) Exam Extremities: other (LLE/ Splint intact, pins intact to toes with cr brisk and warm and well perfused) VINI TVAERAS MD May 14, 2018 07:48
[2018-05-14 08:14] VITALS: BP 151/80; PULSE 93; RESP 18
[2018-05-14] MEDS: DOCUSATE SODIUM 100 MG CAP PO SCH (08:25)
[2018-05-14] MEDS: CHOLECALCIFEROL 1,000 UNIT TAB PO SCH ×2 (08:26→08:57)
[2018-05-14] MEDS: ASCORBIC ACID 500 MG TAB PO SCH (08:27)
[2018-05-14] MEDS: FOLIC ACID 1 MG TAB PO SCH (08:27)
[2018-05-14] MEDS: LOSARTAN 50 MG TAB PO SCH (08:29)
--- NOTE | 2018-05-14 09:10 | NUR ---
PT [facility]AL[facility]MAR [facility] Patient: Rosamaria Luciano : 1940 Age/Sex: 78/F Unit#: [id number] Room/Bed: 405/A User: Anabel Lara PTA Date: 05/14/18 09:10 Type: PT Technical Record Therapy day number 3 Subjective Denies pain Pain Scale NUMERIC Pain Intensity 0 (0-10) Patient Stated Goal for Pain Relief 0 (0-10) Pain Level Comment denied pain Transfer Training Start Time 08:32 Supine to Sit Stand by Assist Transfer Sit to Stand Ability Stand by Assist Bed Mobility Sit to Supine Stand by Assist Additional Mobility Comments rolling L<>R to don diaper Transfer Training End Time 08:47 Total Transfer Training Time 15 min (8-127) Gait Training Start Time 08:47 Gait Assist Levels Stand by Assist Assistive Devices Front Wheel Walker Ambulation Distance 10 feet Additional Gait Comments hop to pattern Gait Training End Time 09:10 Total Gait Training Treatment Time 23 min (8-127) Weight Bearing Assessment Label Left Lower Extremity Weight Bearing Status Non Weight Bearing Static Sitting Balance Good Dynamic Sitting Balance Good Standing Static Balance Fair plus Dynamic Standing Balance Fair plus Additional Balance Assessments Comments FWW Safety Judgement Good Activity Tolerance Good Post Treatment Pain Intensity 0 0-10 Total Treament Time 38 min (8-127) Total Minutes 38 Total Units 3 PT Technical Record Comment S: RN Eboni Fuller cleared pt for PT. Pt denied pain and agreeable to tx O: Received pt in bed w/ HOB elevated. See above for assist levels. Torrey rolling/lifting hips w/ use of trapeze to don diaper. Gait training x 10' and presented with hop to pattern. Required 1 standing rest period due to fatigue. Returned pt back to room and assisted back to bed. Positioned pt to comfort in bed w/ HOB elevated and LLE elevated w/ wedge pillow. Call light/phone within reach. Needs met. Informed RN of pt status and PT activities A: Good tolerance to tx. Limited gait distance due to shoulder pain. Improved assistance throughout. Maintained LLE NWB. Pt has commode and FWW at home. P: Continue w/ POC and progress as tolerated
--- NOTE | 2018-05-14 10:00 | NUR ---
ST NOTE: pt seen for f/up; sent soft tray pt able to tolerate without difficulty; rec. upgrade to [facility];soft;continue thin and advance as tolerated.
--- NOTE | 2018-05-14 12:04 | NUR ---
KAMILA NOTES: MET WITH THE PT AT THE BEDSIDE. PT LIVED WITH AND DAUGHTER. PT USED BSC, SCOOTER, W/C AT HOME. PT HAS A DISABLED AND ONLY WANT TO BE DC HOME. PT REFUSED [facility] [id number]. INFORMED BEDSIDE NURSE WITH THE UPDATE. PLAN: DC HOME WITH HH. SADIQ WILCOX LEAD CM [id number]
--- NOTE | 2018-05-14 13:27 | PDOCDIS ---
Discharge Instructions DIAGNOSIS Discharge Diagnosis Left ankle hardware needing replacement; hyperlipidemia; hypertension Operation/Procedure Performed Left foot hardware removal Left foot first metatarsal phalangeal joint arthrodesis with calcaneal autograft and allograft Left foot extensor hallucis longus lengthening and tenodesis Left foot second metatarsal phalangeal joint and third metatarsal phalangeal joint correction of angular deformity Left foot second metatarsal Ronda shortening osteotomy Left foot second metatarsal phalangeal joint lateral joint capsular repair CONDITION [id number] Patient Condition: [id number] Fair HOME CARE INSTRUCTIONS: [id number] Diet Instructions: [id number] Reduced Sodium ACTIVITY: [id number] Activity Restrictions: [id number] Slowly Increase Activity Do not operate Machinery Do not operate Power Tool FOLLOW UP/APPOINTMENTS Follow-up Plan Follow-up with Dr. Campbell in 1 week CASSIDY MCCLOUD MD May 14, 2018 13:27
[2018-05-14] MEDS ORDERED: RIVA10TA PO (13:28)
[2018-05-14] MEDS ORDERED: GABA100C14 PO (13:28)
--- NOTE | 2018-05-14 13:32 | DS ---
Date/Time of Note Date/Time of Note DATE: 05/14/18 TIME: 13:30 Discharge Summary Admission/Discharge Info Admit Date/Time May 11, 2018 at 11:49 Discharge Date/Time May 14 2018 Discharge Diagnosis Left ankle hardware needing replacement; hyperlipidemia; hypertension Operation/Procedure Performed Left foot hardware removal Left foot first metatarsal phalangeal joint arthrodesis with calcaneal autograft and allograft Left foot extensor hallucis longus lengthening and tenodesis Left foot second metatarsal phalangeal joint and third metatarsal phalangeal joint correction of angular deformity Left foot second metatarsal Ronda shortening osteotomy Left foot second metatarsal phalangeal joint lateral joint capsular repair Patient Condition: Fair Consults Internal medicine-Dr. Frost Procedures Operation/Procedure Performed Left foot hardware removal Left foot first metatarsal phalangeal joint arthrodesis with calcaneal autograft and allograft Left foot extensor hallucis longus lengthening and tenodesis Left foot second metatarsal phalangeal joint and third metatarsal phalangeal joint correction of angular deformity Left foot second metatarsal Ronda shortening osteotomy Left foot second metatarsal phalangeal joint lateral joint capsular repair Hx of Present Illness Charming 78-year-old female who was brought in electively for repair of left ankle hardware that was unfortunately at the end of its utility. 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 There is also across under deformity of her second and third toes. Patient is indicated for surgery due to these ongoing complaints. Hospital Course She underwent surgical repair as noted above without complications. She did have a sore throat postop after intubation. She has progressed nicely is now stable for discharge home in improved condition as compared to the time of admission. Home Meds Reported Medications Indapamide* (Lozol*) 1.25 Mg Tab, 1.25 MG PO DAILY, TAB 05/11/18 Cholecalciferol* (Vitamin D3*) 1,000 Unit Tablet, 1000 UNIT PO DAILY, TAB 05/11/18 Potassium Chloride (Klor-Con M10) 10 Meq Tab.prt.sr, 10 MEQ PO 05/08/18 Atorvastatin Calcium* (Atorvastatin Calcium*) 20 Mg Tablet, 20 MG PO QHS, #30 TAB 05/08/18 Folic Acid* (Folic Acid*) 1 Mg Tablet, 1 MG PO DAILY, TAB 05/08/18 Olmesartan Medoxomil (Benicar) 20 Mg Tablet, 20 MG PO DAILY, #30 TAB 05/08/18 Meloxicam* (Mobic*) 15 Mg Tablet, 15 MG PO DAILY, #30 TAB 05/08/18 Follow-up Plan Follow-up with Dr. Campbell in 1 week Primary Care Provider Not On Staff Doctor Time spent on discharge: > 30 minutes CASSIDY MCCLOUD MD May 14, 2018 13:32
--- NOTE | 2018-05-14 14:00 | NUR ---
PATIENT COMFORTABLE. VITALS STABLE. DIET AND ACTIVITY TOLERATED. PHYSIO TOLERATED WELL. SURGICAL SITE INTACT AND NO DRAINAGE NOTED. CONTINUED TO ELEVATE FOOT ON THE WEDGE PILLOW. SPEECH AND LANGUAGE CLEARED HER FROM THEIR SIDE. PHYSIO CLEARED FROM THEIR SIDE. DR. FIELDS SEEN HER AND CLEARED FROM MEDICAL SIDE. AWAITING FOR DR. DARCY MARTINI TO CLEAR HER FOR DISCHARGE.
--- NOTE | 2018-05-14 14:30 | NUR ---
PATIENT SEEN BY DR. DARCY RAMOS AT THIS TIME AND CLEARED FROM HIS SIDE. PATIENT AWAITING FOR THE DAUGHTER TO COLLECT HER FROM HERE IN THE EVENING. IV CATHETER REMOVED . TIP IS INTACT DRY DRESSING APPLIED . WILL CONTINUE TO MONITOR. CALL LIGHT WITHIN REACH.
--- NOTE | 2018-05-14 14:39 | NUR ---
PT [facility]AL[facility]MAR [facility] Patient: Rosamaria Luciano : 1940 Age/Sex: 78/F Unit#: [id number] Room/Bed: 405/A User: Anabel Lara PTA Date: 05/14/18 14:39 Type: PT Technical Record Therapy day number 3 Subjective Denies pain Pain Scale NUMERIC Pain Intensity 0 (0-10) Patient Stated Goal for Pain Relief 0 (0-10) Pain Level Comment denied pain Transfer Training Start Time 14:16 Supine to Sit Supervised Transfer Sit to Stand Ability Supervised Bed Mobility Sit to Supine Supervised Transfer Training End Time 14:26 Total Transfer Training Time 10 min (8-127) Gait Training Start Time 14:26 Gait Assist Levels Supervised Assistive Devices Front Wheel Walker Ambulation Distance 10 feet Additional Gait Comments 10'x2. hop to pattern. 1 standing rest break Gait Training End Time 14:39 Total Gait Training Treatment Time 13 min (8-127) Weight Bearing Assessment Label Left Lower Extremity Weight Bearing Status Non Weight Bearing Static Sitting Balance Good Dynamic Sitting Balance Good Standing Static Balance Good Dynamic Standing Balance Fair plus Additional Balance Assessments Comments FWW Safety Judgement Good Activity Tolerance Good Post Treatment Pain Intensity 0 0-10 Total Treament Time 23 min (8-127) Total Minutes 23 Total Units 2 PT Technical Record Comment S: JACQUELYN Fuller cleared pt for PT. Pt denied pain and agreeable to tx O: Received pt in bed w/ HOB elevated. See above for assist levels. Gait training x 10'x2 and presented w/ hop to pattern. Returned pt back to room and assisted back to bed. Positioned pt to comfort in semifowler. Call light/phone within reach. Needs met. Left pt w/ RN and MD present in room. A: Good tolerance to tx. Same amount of distance and improved assistance from SBA to supervised. P: Continue w/ POC and progress as tolerated
--- NOTE | 2018-05-14 17:15 | NUR ---
PATIENT LEFT THE UNIT AT THIS TIME VIA WHEEL CHAIR ACCOMPANIED BY CEMENTER OIL WELL. FAMILY ACCOMPANIED. DISCHARGED SAFELY.
== END 2018-05-14 17:25 | disposition home or self-care (01) ==
LOC: SDS 06:02 → REC 11:49 → MS1 12:26
PROVIDERS: ADMIT Orthopaedic Surgery; ATTEND Orthopaedic Surgery
DX: T84.84XA Pain due to internal orthopedic prosthetic devices, implants and grafts, initial encounter (principal); M20.5X2 Other deformities of toe(s) (acquired), left foot; Y79.1 Therapeutic (nonsurgical) and rehabilitative orthopedic devices associated with adverse incidents; I10 Essential (primary) hypertension; E78.5 Hyperlipidemia, unspecified
CPT/HCPCS: 28313; 28750; 73630; 80048; 82306; 85025; 88300; 88304; 92526; 92610; 97116; 97162; 97530; C1713; C1762; G0378; J1100; J1885; J2250; J2370; J2405; J2710; J2765; J2795; J3010; J3370; J0690